=== PATIENT | female | born 1965 | race Caucasian/White ===

== ENCOUNTER 2020-06-09 10:27 | Emergency (ER) | payer OTHER ==
[~2020-06-09] VITALS: Ht 162.6 cm; Wt 73.9 kg
[2020-06-09] MEDS ORDERED: DIPHENHYDRAMINE 50 MG/ML, 1ML ONE (11:12)
[2020-06-09] MEDS ORDERED: PROCHLORPERAZINE 5 MG/ML, 2ML ONE (11:12)
--- NOTE | 2020-06-09 11:21 | NUR ---
PT HAS C/O LET SIDE HEADACHE FOR THE LAST 6 DAYS THAT HAS GOTTEN UNBEARABLE PER PT. PT RESTING IN BED, PT ON MONITOR WITH PT VSS. PT MEDICATED PER AUG. PT PROVIDED BLANKET AND SOCKS AT PT REQUEST
[2020-06-09] MEDS ORDERED: DIPHENHYDRAMINE 50 MG/ML, 1ML IVPush ONE (11:30)
[2020-06-09] MEDS ORDERED: PROCHLORPERAZINE 5 MG/ML, 2ML IVPush ONE (11:30)
[2020-06-09] MEDS ORDERED: SODIUM CHLORIDE FLUSH 10ML SYR IVF ONE (11:30)
[2020-06-09] MEDS ORDERED: GADOTERATE 7.5 MMOL/15 ML VIAL ONE (13:32)
[2020-06-09 14:02] VITALS: BP 117/74
== END 2020-06-09 15:15 | disposition home or self-care (01) ==
LOC: ED 11:10
DX: R51.9 Headache, unspecified (principal); H53.142 Visual discomfort, left eye; R11.0 Nausea; Z88.9 Allergy status to unspecified drugs, medicaments and biological substances
CPT/HCPCS: 70450; 70553; 96374; 96375; 99285; A9575; J0780; J1200